=== PATIENT | male | born 2000 | race Hispanic/Latino ===

== ENCOUNTER 2020-04-25 13:56 | Emergency (ER) | payer SELFPAY ==
[~2020-04-25] VITALS: Ht 167.6 cm; Wt 66.9 kg
[2020-04-25 14:29] LABS: HEMOGLOBIN 13.5 g/dl (14.0-18.0); IMMATURE GRANULOCYTES 0.3 % (0.0-5.0); MEAN CELL VOLUME 85.8 fL CALC (80.0-100.0); MEAN CORPUSCULAR HGB CONC 33.8 g/dL CAL (32.0-36.0); NEUT# 6.86 thou/uL (1.82-7.42); RED BLOOD COUNT 4.66 mill/uL (4.70-6.10); RED CELL DISTRI WIDTH 12.1 % (11.5-15.5)
[2020-04-25 14:31] LABS: GFR 60 ML/MIN (>=60 (CALC)); GFR FOR AFR.AMER. > 60 ML/MIN (>=60 (CALC))
[2020-04-25 14:50] LABS: ALBUMIN 4.8 g/dL (3.2-5.0); ALKALINE PHOSPHATASE 91 u/l (38-126); ANION GAP 21 (6-22 (CALC)); BILIRUBIN, TOTAL 0.4 mg/dL (0.0-1.4); BUN 9 mg/dL (9-20); BUN/CREATININE RATIO 9 (12-20 (CALC)); CARBON DIOXIDE 19 mmol/l (22-30); CHLORIDE 109 mmol/l (95-108); CREATININE 1.1 mg/dL (0.7-1.3); ETHYL ALCOHOL 278 mg/dl (0-30); GFR > 60 ML/MIN (>=60 (CALC)); GFR FOR AFR.AMER. > 60 ML/MIN (>=60 (CALC)); LIPASE 60 u/l (23-300); POTASSIUM 3.4 mmol/l (3.5-5.1); SGOT/AST 37 u/l (17-59); SODIUM 146 mmol/l (137-146)
[2020-04-25 15:13] LABS: ACT PARTIAL THROMBO TIME 21.7 SECONDS (20.0-32.5); INTERNATIONAL NORMALIZED RATIO 1.2 RATIO (0.7-1.3); PROTHROMBIN TIME 11.7 SECONDS (9.0-12.5)
[2020-04-25 16:15] VITALS: BP 145/66
[2020-04-25 16:34] LABS: URINE BILIRUBIN - DIPSTICK NEGATIVE (NEGATIVE); URINE BLOOD DIPSTICK TRACE-INTACT (NEGATIVE); URINE COLOR YELLOW; URINE GLUCOSE - DIPSTICK NEGATIVE (NEGATIVE); URINE KETONE NEGATIVE (NEGATIVE); URINE LEUK ESTERASE NEGATIVE (NEGATIVE); URINE NITRITE - DIPSTICK NEGATIVE (Negative); URINE PROTEIN - DIPSTICK NEGATIVE (NEG-TRACE); URINE SPECIFIC GRAVITY <=1.005; URINE UROBILINOGEN - DIPSTICK 0.2 E.U./dL (0.2)
== END 2020-04-25 16:15 | DRG 914 ==
LOC: ED 13:56
PROC: 0T9B70Z Drainage of Bladder with Drainage Device, Via Natural or Artificial Opening (ICD-10-PCS; principal; 2020-04-25)
PROC: 0BH17EZ Insertion of Endotracheal Airway into Trachea, Via Natural or Artificial Opening (ICD-10-PCS; 2020-04-25)
DX: S09.90XA Unspecified injury of head, initial encounter (principal); S05.92XA Unspecified injury of left eye and orbit, initial encounter; S10.91XA Abrasion of unspecified part of neck, initial encounter; S20.212A Contusion of left front wall of thorax, initial encounter; F10.129 Alcohol abuse with intoxication, unspecified; R40.2412 Glasgow coma scale score 13-15, at arrival to emergency department; R40.2433 Glasgow coma scale score 3-8, at hospital admission; Y04.0XXA Assault by unarmed brawl or fight, initial encounter
CPT/HCPCS: J2060; L0120

== ENCOUNTER 2023-05-28 07:37 | Emergency (ER) | payer OTHER ==
[~2023-05-28] VITALS: Ht 167.6 cm; Wt 77.0 kg
[2023-05-28 08:02] VITALS: BP 123/70
[2023-05-28 08:46] VITALS: BP 118/93
[2023-05-28 09:00] VITALS: BP 134/90
[2023-05-28 09:15] VITALS: BP 121/75
[2023-05-28] MEDS ORDERED: NAPROXEN500 MG PO (10:51)
[2023-05-28 11:13] VITALS: BP 121/75
== END 2023-05-28 11:15 | disposition home or self-care (01) | DRG 552 ==
LOC: ED 07:37
DX: M54.2 Cervicalgia (principal); M54.6 Pain in thoracic spine; M54.50 Low back pain, unspecified; V49.50XA Passenger injured in collision with unspecified motor vehicles in traffic accident, initial encounter; Z72.0 Tobacco use